=== PATIENT | male | born 1995 | race Caucasian/White ===

== ENCOUNTER 2024-11-15 11:55 | Inpatient (IN) | payer MEDICAID, SELFPAY ==
[2024-11-15] VITALS (7 sets, daily range): BP systolic 135–167; BP diastolic 67–98; PULSE 47–64; RESP 13–90; TEMP 36.1–37.1; O2SAT 97–100; BMI 21.2
--- NOTE | 2024-11-15 12:17 | XR_ITS ---
Examination: CT abdomen with intravenous contrast CT pelvis with intravenous contrast 2-D coronal reconstructions 2-D sagittal reconstructions Date and time of exam:November 15, 2024 12:51 PM Comparison December 12, 2023 INDICATIONS: Upper abdominal pain and vomiting today, history pancreatitis. CTDI: vol (mGy) 5.35 DLP: (mGycm) 307 Technique: Multiple axial sections of the abdomen and pelvis have been obtained. 64 slice high-resolution scanner used. 3 mm axial sections have been obtained, post intravenous injection 60 cc [id number] 2-D sagittal, coronal reconstructions obtained. Low dose protocols were performed. One or more of the following dose reduction techniques were used; automated exposure control, adjustment of the mA and/or KV according to patient size, use of iterative reconstruction technique. Findings: Fatty infiltration throughout the liver No gallstones Severe acute pancreatitis with marked edema and fluid surrounding the pancreas which may represent a developing pseudocyst Spleen not enlarged No hydronephrosis Aorta normal size No bowel obstruction Normal appendix Urinary bladder intact No prostatomegaly IMPRESSION: Severe acute pancreatitis
[2024-11-15] MEDS: ONDANSETRON INJ 2 MG/ML INJ 2 ML 4 MG IVP ×3 (12:35→20:49)
[2024-11-15] MEDS: SODIUM CHLORIDE 0.9% 1000 ML 1,000 ML 999 ML IV ×2 (12:37→13:02)
[2024-11-15] MEDS: HYDROmorphone INJ 2 MG/ML VIAL 1 MG IVP ×3 (12:39→20:48)
[2024-11-15] MEDS: FAMOTIDINE INJ 10 MG/ML VIAL 2 ML 20 MG IVP (12:40)
--- NOTE | 2024-11-15 12:45 | EKG_ITS ---
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
[2024-11-15 13:06] LABS: Basophils # (Auto) 0.0 Thou/mm3 (0.0-0.2); Basophils % (Auto) 0 % (0-2.5); Eosinophils # (Auto) 0.1 Thou/mm3 (0.0-0.5); Eosinophils % (Auto) 1 % (0-10); Hematocrit 46.1 % (41.0-53.0); Hemoglobin 17.7 g/dL (13.5-16.0); Immature Granulocytes Auto 0.06 Thou/mm3 (0.00-0.00); Lymphocytes # (Auto) 1.3 Thou/mm3 (1.0-4.8); Lymphocytes % (Auto) 13 % (10-50); Mean Corpuscular HGB Conc 38.4 g/dl (31.0-37.0); Mean Corpuscular Hemoglobin 33.1 pg (25.0-35.0); Mean Corpuscular Volume 86 fL (80-100); Monocytes # (Auto) 0.4 Thou/mm3 (0.0-0.8); Monocytes % (Auto) 4 % (0-12); Neutrophils # (Auto) 8.2 Thou/mm3 (1.8-7.7); Neutrophils % (Auto) 81 % (37-80); Nucleated Red Blood Cell # 0.00 Thou/mm3 (0.00-0.00); Nucleated Red Blood Cell % 0 /100 WBC (0); RDW Standard Deviation 40.7 fL (35.1-43.9); Red Blood Count 5.35 Miln/mm3 (4.50-5.90); White Blood Count 10.1 Thou/mm3 (3.8-10.6)
[2024-11-15 13:07] LABS: Platelet Count 45 Thou/mm3 (140-440)
[2024-11-15 13:26] LABS: Alanine Aminotransferase 12 U/L (10-49); Albumin, Serum 4.6 gm/dL (3.5-5.0); Albumin/Globulin Ratio 1.3 (1.2-2.2); Alcohol, Blood Medical < 3.0 mg/dL (0-10.0); Alkaline Phosphatase 118 U/L (46-116); Anion Gap 13 (7-16); Aspartate Amino Transferase 32 U/L (0-34); BUN/Creatinine Ratio 9 Ratio (12-20); Bilirubin,Total 2.0 mg/dL (0.3-1.2); Blood Urea Nitrogen 9 mg/dL (9-23); Calcium 9.8 mg/dL (8.3-10.6); Calcium (Corrected) 9.8 mg/dL (8.5-10.1); Carbon Dioxide 21.0 mMol/L (20.0-31.0); Chloride 107 mMol/L (98-107); Creatinine (Component) 1.0 mg/dL (0.6-1.3); Estimated Creatinine Clearance 96.1 mL/min (>60); Globulin 3.6 gm/dL (2.3-3.5); Glucose 141 mg/dL (74-106); Lipase 1075 U/L (12-53); Osmolality,Calculated 281 (275-295); Potassium 4.4 mMol/L (3.4-5.1); Sodium 141 mMol/L (136-145); Total Protein 8.2 gm/dL (5.7-8.2); eGFR > 60 See Note
[2024-11-15 13:50] LABS: Slide Review Platelets confirmed
--- NOTE | 2024-11-15 14:05 | EDNOTE_ITS ---
ED Abdominal Pain RME/HPI General Chief Complaint: Abdominal Pain Stated complaint: EXTREME ABD PAIN, NAUSEA SINCE THIS AM; 02/10 Time seen by provider: 11/15/24 12:17 Arrival date/time: 11/15/24 11:55 This is a case of 29-year-old male with history of pancreatitis and alcohol intake came in in the emergency room due to abdominal pain generalized which started today associated with nausea vomiting worsening of the symptoms this patient decided to start consult here in the emergency room patient have history of recurrent admission due to acute pancreatitis last admission 7 months ago Limitations: no limitations Related Data Home Medications ?Medication ?Instructions ?Recorded ?Confirmed [id number] 250 1 tab PO Q6H PRN He adache 12/13/23 12/13/23 mg-250 mg-65 mg tablet (Excedrin Migraine) Allergies Allergy/AdvReac Type Severity Reaction Status Date / Time No Known Allergies Allergy Verified 11/15/24 11:58 Review of Systems Constitutional Constitutional: Reports system reviewed and no additional complaints, except as documented, Reports as per HPI, Denies chills and Denies fever(s) ENT Ears, Nose, Mouth, and Throat: Denies dysphagia and Denies odynophagia Cardiovascular Cardiovascular: Reports system reviewed and no additional complaints, except as documented, Reports as per HPI, Denies chest pain and Denies dyspnea Respiratory Respiratory: Reports system reviewed and no additional complaints, except as documented, Reports as per HPI and Denies dyspnea Gastrointestinal Gastrointestinal: Reports system reviewed and no additional complaints, except as documented, Reports as per HPI, Reports abdominal pain, Denies belching, Denies bloating, Denies change in bowel habits, Denies change in stool character, Denies coffee ground emesis, Denies constipation, Denies cramping, Denies diarrhea, Denies dyspepsia, Denies dysphagia, Denies early satiety, Denies excessive flatus, Denies fecal incontinence, Denies heartburn, Denies hematemesis, Denies hematochezia, Denies loose stools, Denies melena, Reports nausea, Denies odynophagia, Denies tenesmus and Reports vomiting Neurologic Neurologic: Reports system reviewed and no additional complaints, except as documented and Reports as per HPI Past Medical History Past Medical History NEUROLOGIC: Negative Neurological Disorders CARDIAC: Negative Cardiac Disorders, Congestive Heart Failure or Hypertension RESPIRATORY: Negative Chronic Obstructive Pulmonary Disease (COPD) or Asthma GASTROINTESTINAL: Positive Gastrointestinal Disorders and Pancreatitis GENITOURINARY: Negative Genitourinary Disorders or Renal Disease MUSCULOSKELETAL: Negative Musculoskeletal Disorders ENDOCRINE: Negative Endocrine Disorders, Diabetes Mellitus Type 1, Diabetes Mellitus Type 2, Hyperthyroidism or Hypothyroidism HEMATOLOGIC: Negative Blood Disorders or Sickle Cell Disease OTHER HISTORY: Positive Human Immunodeficiency Virus (HIV); Negative Autoimmune Disease or Anesthesia Reactions Family History FAMILY HISTORY: Negative Family Cardiac Disorders Surgical History SURGICAL: Negative Endocrine Surgery, Ear Surgery or Nephrectomy Social History SMOKING STATUS: Current every day smoker ED Exam General Limitations: Present no limitations General appearance: Present alert, in no apparent distress and other (Awake alert oriented not in distress nontoxic looking well-hydrated well-nourished) Head Head exam: Present atraumatic, normocephalic and normal inspection Eye Eye exam: Present normal appearance, PERRL and EOMI ENT ENT exam: Present normal exam, normal oropharynx and mucous membranes moist Neck Neck exam: Present normal inspection, full ROM and trachea midline; Absent tenderness, meningismus or lymphadenopathy Chest Chest inspection: Present normal inspection and symmetric chest wall rise; Absent tenderness, rash or abscess Respiratory Respiratory exam: Present normal lung sounds bilaterally; Absent respiratory distress, wheezes, stridor, accessory muscle use or prolonged expiratory phase Cardiovascular Cardiovascular exam: Present regular rate, normal rhythm and normal heart sounds; Absent bradycardia, tachycardia, irregular rhythm, systolic murmur or diastolic murmur Abdominal Exam Abdominal exam: Present soft, tenderness (Moderate tenderness on both upper abdomen and epigastric area) and normal bowel sounds; Absent distention, guarding, rebound, rigidity, diminished bowel sounds, hyperactive bowel sounds, hypoactive bowel sounds, organomegaly, trauma, psoas sign, obturator sign, Gibbs's sign, Rovsing's sign or ascites Abdominal tenderness: Present RUQ, LUQ, epigastrium and moderate Extremities Exam Extremities exam: Present normal inspection and full ROM Back Exam Back exam: Present normal inspection and full ROM Neurological Exam Neurological exam: Present alert, oriented X3, CN II-XII intact, normal gait and reflexes normal; Absent motor sensory deficit Psychiatric Psychiatric exam: Present normal affect and normal mood Skin Skin exam: Present warm, dry, intact and normal color Course Quality Measures none Orders Category Date Time Status COVID-19 Screening Questionnaire NOW Care 11/15/24 14:[address] Screening NOW Care 11/15/24 12:18 Active Decision to Admit X1 Care 11/15/24 14:05 Active EKG (ED ONLY) *Do not use* NOW Care 11/15/24 12:45 Active Insert IV NOW Care 11/15/24 12:[address] abdomen pelvis w con Stat Exams 11/15/24 12:17 Completed EKG (ED Only) Stat Exams 11/15/24 12:45 Draft US gall bladder Stat Exams 11/15/24 14:06 Ordered Alcohol, Blood Medical Stat Lab 11/15/24 12:45 Completed CBC Stat Lab 11/15/24 12:45 Completed Comprehensive Metabolic Panel Stat Lab 11/15/24 12:45 Completed Drug Screen,Urine Stat Lab 11/15/24 12:17 Ordered Lipase Stat Lab 11/15/24 12:45 Completed UA, C/S IF [Urinalysis, C/S if Indicated] Stat Lab 11/15/24 12:17 Ordered Famotidine Inj [Pepcid Inj] Med 11/15/24 12:34 Discontinued 20 mg IVP X1 ONE HYDROmorphone INJ [Dilaudid Inj] Med 11/15/24 12:34 Discontinued 1 mg IVP X1 ONE Morphine Inj Med 11/15/24 12:18 Discontinued 4 mg IVP X1 ONE Ondansetron Inj [Zofran Inj] Med 11/15/24 12:18 Discontinued 4 mg IVP X1 ONE Ondansetron Inj [Zofran Inj] Med 11/15/24 12:34 Discontinued 4 mg IVP X1 ONE Pantoprazole Inj [Protonix Inj] Med 11/15/24 12:18 Discontinued 40 mg IVP X1 ONE Sodium Chloride 0.9% 1000 ml [Ns] 1,000 ml Med 11/15/24 12:17 Discontinued IV 999 mls/hr Sodium Chloride 0.9% 1000 ml [Ns] 1,000 ml Med 11/15/24 12:34 Discontinued IV 999 mls/hr Vital Signs Vital signs: Vital Signs Temperature 98 F 11/15/24 12:13 Pulse Rate 64 11/15/24 12:13 Respiratory Rate 18 11/15/24 12:13 Blood Pressure 138/72 H 11/15/24 12:13 Pulse Oximetry (%) 100 11/15/24 12:13 Oxygen Delivery Method Room Air 11/15/24 12:13 Patient is afebrile not tachycardic not tachypneic BP stable not hypoxic oxygen saturation is 100% in room air Abdominal Pain MDM MDM Narrative MDM Narrative:: This is a case of 29-year-old male with history of pancreatitis and alcohol intake came in in the emergency room due to abdominal pain generalized which started today associated with nausea vomiting worsening of the symptoms this patient decided to start consult here in the emergency room patient have history of recurrent admission due to acute pancreatitis last admission 7 months ago physical examination patient is awake alert oriented not in distress nontoxic looking vital signs stable BP stable not tachycardic not tachypneic not hypoxic no signs and symptoms of sepsis or dehydration patient abdominal exam noted to have moderate tenderness on both upper abdomen and epigastric area no guarding no rebound no rigidity negative psoas negative straight or negative Rovsing's and McBurney's negative Gibbs sign negative CVA tenderness the rest of the physical examination neurological exam is normal and unremarkable blood test showed no leukocytosis patient have hemoconcentration patient have elevated hemoglobin 17.7 no normal platelet no electrolyte imbalance kidney function is normal liver function AST ALT is normal alk phos is elevated 118 bilirubin is also elevated 2.0 lipase is elevated [address] scan showed severe acute pancreatitis decision to admit was given I spoke to the hospitalist Dr. Greene discussed patient condition history and physical examination relayed the blood test and CT scan agreed that the patient need to be admitted for acute pancreatitis discussed with the patient the treatment plan admission and agreed patient was given a bolus of normal saline Dilaudid due to severe abdominal pain Zofran for vomiting and Pepcid. Patient data External records reviewed:: [facility] previous records Clinical information provided by:: patient Social determinants that could affect healthcare access:: none Patient has the following chronic illnesses:: None How is presenting disease/condition affected by chronic disease/condition?: no chronic disease Evaluation data The following diagnostics were reviewed and interpreted by me:: lab results and radiology exam(s) Lab and/or radiology exams considered but not ordered:: None Interpretation Summary: None Medications / Prescriptions Medications or Prescriptions considered but not ordered:: Given Medication administrations:: Medication Administration History Discontinued Medications Famotidine (Famotidine Inj 10 Mg/Ml Vial 2 Ml) 20 mg IVP X1 ONE Stop: 11/15/24 12:35 Last Admin: 11/15/24 12:40 Dose: 20 mg Documented By: ZULEYKA Hydromorphone HCl (Hydromorphone Inj 2 Mg/Ml Vial) 1 mg IVP X1 ONE Stop: 11/15/24 12:35 Last Admin: 11/15/24 12:39 Dose: 1 mg Documented By: ZULEYKA Sodium Chloride (Ns) 1,000 mls @ 999 mls/hr IV .Q1H1M ONE Stop: 11/15/24 13:17 Last Infusion: 11/15/24 13:57 Dose: Infused Documented By: Admin: 11/15/24 12:37 Dose: 999 mls/hr Documented By: ZULEYKA Sodium Chloride (Ns) 1,000 mls @ 999 mls/hr IV .Q1H1M ONE Stop: 11/15/24 13:34 Last Admin: 11/15/24 13:02 Dose: 999 mls/hr Documented By: ZULEYKA Morphine Sulfate (Morphine Sulf Inj 10 Mg/Ml Vial) 4 mg IVP X1 ONE Stop: 11/15/24 12:19 Ondansetron HCl (Ondansetron Inj 2 Mg/Ml Inj 2 Ml) 4 mg IVP X1 ONE; Protocol Stop: 11/15/24 12:19 Last Admin: 11/15/24 12:35 Dose: 4 mg Documented By: ZULEYKA Ondansetron HCl (Ondansetron Inj 2 Mg/Ml Inj 2 Ml) 4 mg IVP X1 ONE; Protocol Stop: 11/15/24 12:35 Pantoprazole Sodium (Pantoprazole Inj 40 Mg Vial) 40 mg IVP X1 ONE Stop: 11/15/24 12:19 Last Admin: 11/15/24 12:37 Dose: 40 mg Documented By: ZULEYKA Given Consultations Consultation(s) initiated? (list below): Yes Consultation #1 (Physician, Specialty, Details): DR fraser discussed patient condition history and physical examination relayed result of the blood test and CT scan accept patient admission for acute pancreatitis Diagnosis Differential diagnosis abdominal pain: abdominal pain, acute appendicitis, calculus of kidney, constipation, diverticulitis, gastroenteritis and pancreatitis Most likely diagnosis given after review of the tests above:: Acute pancreatitis Admission Indicated Admission indicated?: indicated Explain why admission is indicated or not indicated:: Acute pancreatitis Admission Request Was there a request for admission?: Yes Admission Attestation Admission request attestation: Discussed case with [] from Hospitalist service regarding admission. Discussed patients ED course, exam findings, labs, and radiology results. The Hospitalist [agrees,declines] to accept the patient for admission. Disposition Plan Disposition Plan: Admit Discharge Plan Plan Patient Disposition: Admit Acute Care w/in Hospital Prescriptions/Referrals Prescriptions/Med Rec: No Action Excedrin Migraine 250-250-65 mg Tablet 1 tab PO Q6H PRN (Reason: Headache) Referrals: No Primary/Family,Physician [Primary Care Provider] - In 1 week Problem List Clinical Impression: Acute pancreatitis Patient/Caregiver Discharge Instructions Education Materials: ED Pancreatitis Print Language: Slovenian Stand Alone Forms: Lynette Award Info., Patient Portal Info Letter PA/THROW OUT CLERK Supervising Physician PA/THROW OUT CLERK Supervising Physician: DR jensen
--- NOTE | 2024-11-15 14:06 | XR_ITS ---
Examination: Abdomen sonogram, Limited Date and time of exam: November 15, 2024 1424 hours INDICATIONS: Mid abdominal pain today, severe acute pancreatitis on CT abdomen study today Technique: Real-time brown scale transabdominal sonographic images of the upper abdomen obtained. Findings: Negative for gallstones Gallbladder wall 0.2 cm Common bile duct 0.2 cm Pancreatic head 2.4 cm, fluid surrounding the pancreas Liver 14.2 cm no focal liver lesions Normal hepatopedal portal venous flow Patent IVC IMPRESSION: Normal gallbladder Normal common bile duct Acute pancreatitis
[2024-11-15] MEDS: MORPHINE SULF INJ 10 MG/ML VIAL 4 MG IVP (14:08)
[2024-11-15 16:15] LABS: Magnesium 1.4 mg/dL (1.6-2.6); Phosphorous 2.3 mg/dL (2.4-5.1)
[2024-11-15] MEDS: THIAMINE INJ 100 MG/ML VIAL 2 ML IVP (16:19)
[2024-11-15] MEDS: FOLIC ACID INJ 1 MG/0.2 ML IVP (16:22)
[2024-11-15] MEDS: LORazepam 2 MG/ML VIAL 1 MG IVP ×2 (16:24→20:49)
--- NOTE | 2024-11-15 16:29 | ESHP_ITS ---
<Statement entered by Cooper Martin MD - 11/15/24 17:42> Patient was seen and examined at the bedside. Patient has been drinking alcohol 5-6 beers every day. Last drink was yesterday. He came with abdominal discomfort and nausea and vomiting. He was found to have acute pancreatitis per CT with elevated lipase. Fluid bolus was given. Will continue with IV fluids pain management and nausea control. Keep him n.p.o. for now. [facility] protocol as needed. All labs and orders were reviewed. Documentation for date of: 11/15/24 HPI History of Present Illness Chief complaint: Abdominal pain, nausea, and vomiting. History of present illness: 29-year-old male with PMH of recurrent pancreatitis, HIV (not on ART), thrombocytopenia, syphilis (partially treated), and polysubstance use (alcohol, marijuana, vape), presenting to the ED with acute epigastric pain radiating to the back and right side, ongoing since this morning. Pain is similar to previous episodes of pancreatitis. He also reports persistent nausea and multiple episodes of vomiting. He has not passed gas or had a bowel movement since onset. He last ate and drank alcohol last night, consuming 5?6 beers and liquor, which he does on weekends. He used marijuana last week and smokes vape daily. Denies other drug use. He has had three prior episodes of pancreatitis (October 2022, February 2023, and December 2023). Last admission was in December 2023, with similar presentation and a lipase of 1641. He was treated supportively and discharged after resolution. He has a history of HIV diagnosed in 2021, not currently on ART. He was given 1 dose of Penicillin G in December 2023 for syphilis, but has not followed up with PCP or infectious disease since. No additional treatment received. ?ED course: In the emergency department, the patient presented with acute epigastric pain radiating to the back and right side, associated with persistent nausea and vomiting. He reported no oral intake since the night before and had not passed gas or had a bowel movement. Vitals were stable and exam showed epigastric and RUQ tenderness without peritoneal signs. Laboratory evaluation revealed an elevated lipase of 1075, hemoconcentration (Hgb 17.7), thrombocytopenia (platelets 45k), elevated bilirubin (2.0), and mild elevation in alkaline phosphatase (118). CT abdomen/pelvis demonstrated severe acute pancreatitis with surrounding edema and fluid, possibly indicating early pseudocyst formation. EKG showed sinus bradycardia at a rate of 43 with a short IL interval. RUQ ultrasound was ordered to evaluate for biliary obstruction. The patient was treated with IV fluids, Dilaudid for pain, Zofran for nausea, and Pepcid, and was admitted for further management of acute pancreatitis. Review of Systems: * Constitutional: Denies fever, chills. * GI: Reports abdominal pain, nausea, vomiting. Denies diarrhea, melena, hematochezia. No BM or flatus today. * , CV, Resp, MSK, Neuro, Skin: All other systems reviewed and negative unless otherwise noted in ED. Social History: * Alcohol: Drinks heavily on weekends (5?6 beers + liquor); last use last night. * Marijuana: Last use 1 week ago. * Tobacco: Vapes daily. * No IV drug use. * No known occupational exposures. * No follow-up with providers since last admission. Family History: * Denies family history of pancreatitis, liver disease, HIV, GI malignancy, or coagulopathy. Allergies: * No known drug allergies (NKDA) Exam Vital Signs Temp Pulse Resp BP Pulse Ox O2 Del Method 98.7 F 50 L 13 141/98 H 100 Room Air 11/15/24 15:00 11/15/24 15:00 11/15/24 15:00 11/15/24 15:00 11/15/24 15:00 11/15/24 15:00 Narrative Exam Physical Exam: General: Alert, oriented, nontoxic HEENT: PERRLA, moist mucous membranes CV: RRR, bradycardic, no murmurs Resp: Clear bilaterally GI: Epigastric and RUQ tenderness, no rebound or guarding Neuro: AOx3, non-focal Skin: No rashes, no signs of bleeding Results: Labs 11/18/24 04:32 11/18/24 04:32 Labs: Short CBC 11/15/24 Range/Units 12:45 WBC 10.1 (3.8-10.6) Thou/mm3 Hgb 17.7 H* (13.5-16.0) g/dL Hct 46.1 (41.0-53.0) % Plt Count 45 L (140-440) Thou/mm3 BMP 11/15/24 12:45 Sodium 141 Potassium 4.4 Chloride 107 Carbon Dioxide 21.0 BUN 9 Creatinine 1.0 Glucose 141 H Calcium 9.8 Liver Function 11/15/24 Range/Units 12:45 Total Bilirubin 2.0 H (0.3-1.2) mg/dL AST 32 (0-34) U/L ALT 12 (10-49) U/L Alkaline Phosphatase 118 H (46-116) U/L Albumin 4.6 (3.5-5.0) gm/dL Quality Measures Quality Measures none Medications Home Medications and Allergies Home Medications ?Medication ?Instructions ?Recorded ?Confirmed ?Type No Known Home Medications 11/15/2411/01 History Allergies Allergy/AdvReac Type Severity Reaction Status Date / Time No Known Allergies Allergy Verified 11/15/24 11:58 Visit Medications Acetaminophen (Acetaminophen 325 Mg Tablet) 650 mg PO Q6H PRN PRN Reason: Fever >100.4 Stop: 12/15/24 15:44 Acetaminophen (Acetaminophen 325 Mg Tablet) 650 mg PO Q6H PRN PRN Reason: PAIN SCALE 1-3 (mild Stop: 12/15/24 15:44 Hydrocodone Bitart/Acetaminophen (Hydrocodone/Apap 5/325 Tablet) 1 tab PO Q4HR PRN PRN Reason: PAIN SCALE 4-6 (Moderate Stop: 11/20/24 15:44 Folic Acid (Folic Acid 1 Mg Tablet) 1 mg PO QDAY [facility] Stop: 12/18/24 08:59 Folic Acid (Folic Acid Inj 1 Mg/0.2 Ml) 1 mg IVP QDAY [facility] Stop: 11/17/24 09:01 Hydromorphone HCl (Hydromorphone Inj 2 Mg/Ml Vial) 1 mg IVP Q4HR PRN PRN Reason: Pain 7-10 Stop: 11/20/24 15:25 Lactated Ringer's (Lactated Ringers) 1,000 mls @ 200 mls/hr IV .Q5H CLAUDIA Stop: 12/15/24 15:24 Magnesium Sulfate (Magnesium Sulfate Ivpb) 2 gm in 50 mls @ 25 mls/hr IV X1 ONE Stop: 11/15/24 17:24 Lorazepam (Lorazepam 2 Mg/Ml Vial) 0.5 mg IVP Q4H PRN PRN Reason: CIWA SCORE(2-6) Stop: 11/20/24 15:24 Lorazepam (Lorazepam 2 Mg/Ml Vial) 1 mg IVP Q4H PRN PRN Reason: CIWA SCORE (7-11) Stop: 11/20/24 15:24 Lorazepam (Lorazepam 2 Mg/Ml Vial) 2 mg IVP Q4H PRN PRN Reason: CIWA SCORE (12-16) Stop: 11/20/24 15:24 Lorazepam (Lorazepam 2 Mg/Ml Vial) 2 mg IV Q2HR PRN PRN Reason: CIWA SCORE 20-25 Stop: 11/20/24 15:44 Ondansetron HCl (Ondansetron Inj 2 Mg/Ml Inj 2 Ml) 4 mg IVP Q6H PRN; Protocol PRN Reason: NAUSEA OR VOMITING Stop: 12/15/24 15:44 Pantoprazole Sodium (Pantoprazole Inj 40 Mg Vial) 40 mg IVP QDAY CLAUDIA Stop: 12/15/24 15:29 Sennosides (Senna Tablet) 1 tab PO QDAY PRN; Protocol PRN Reason: constipation Stop: 12/15/24 15:44 Thiamine HCl (Thiamine Inj 100 Mg/Ml Vial 2 Ml) 100 mg IVP QDAY [facility] Stop: 11/17/24 09:01 Thiamine HCl (Thiamine 100 Mg Tablet) 100 mg PO QDAY CLAUDIA Stop: 12/18/24 08:59 Discontinued Medications Famotidine (Famotidine Inj 10 Mg/Ml Vial 2 Ml) 20 mg IVP X1 ONE Stop: 11/15/24 12:35 Last Admin: 11/15/24 12:40 Dose: 20 mg Hydromorphone HCl (Hydromorphone Inj 2 Mg/Ml Vial) 1 mg IVP X1 ONE Stop: 11/15/24 12:35 Last Admin: 11/15/24 12:39 Dose: 1 mg Sodium Chloride (Ns) 1,000 mls @ 999 mls/hr IV .Q1H1M ONE Stop: 11/15/24 13:17 Last Infusion: 11/15/24 13:57 Dose: Infused Sodium Chloride (Ns) 1,000 mls @ 999 mls/hr IV .Q1H1M ONE Stop: 11/15/24 13:34 Last Infusion: 11/15/24 14:05 Dose: Infused Morphine Sulfate (Morphine Sulf Inj 10 Mg/Ml Vial) 4 mg IVP X1 ONE Stop: 11/15/24 12:19 Last Admin: 11/15/24 14:08 Dose: 4 mg Ondansetron HCl (Ondansetron Inj 2 Mg/Ml Inj 2 Ml) 4 mg IVP X1 ONE; Protocol Stop: 11/15/24 12:19 Last Admin: 11/15/24 12:35 Dose: 4 mg Ondansetron HCl (Ondansetron Inj 2 Mg/Ml Inj 2 Ml) 4 mg IVP X1 ONE; Protocol Stop: 11/15/24 12:35 Last Admin: 11/15/24 14:08 Dose: 4 mg Pantoprazole Sodium (Pantoprazole Inj 40 Mg Vial) 40 mg IVP X1 ONE Stop: 11/15/24 12:19 Last Admin: 11/15/24 12:37 Dose: 40 mg Assessment & Plan Plan 29-year-old male with recurrent acute pancreatitis, HIV (not on ART), thrombocytopenia, and substance use disorder, presenting with classic symptoms of pancreatitis, confirmed on imaging and labs. #Acute Pancreatitis 4th episode (prior: October, Feb 2023, Dec 2023) Lipase 1075, CT shows severe pancreatitis with peripancreatic fluid (possible pseudocyst) BISAP Score: 1 Plan: * NPO * IV fluids (NS 200cc/hr) * IV Dilaudid for pain * IV Zofran PRN * Monitor I/Os * Recheck CBC, CMP, lipase daily * GI consult if pseudocyst enlarges or necrosis suspected * Advance diet once pain/nausea improve #History of Recurrent Pancreatitis 3 prior admissions with similar etiology and presentation Plan: * Manager System on alcohol cessation * Document frequency and triggers * Discuss prevention strategies #HIV (Diagnosed 2021, not on ART) CD4 was 116 in July 2023; current status unknown Plan: * Order CD4 count, HIV viral load * ID consult for ART initiation * Reinforce adherence and importance of treatment * Social work for follow-up assistance #History of Syphilis (incomplete treatment) 1 dose Penicillin G in Dec 2023 No further follow-up Plan: * Order RPR * ID to assist in completing treatment if needed * Manager System on STI follow-up #Thrombocytopenia Platelets 45k today (was 11k in Dec) No bleeding Plan: * Trend daily CBC * Avoid IM injections/NSAIDs * No transfusion unless <10k or active bleeding #Alcohol Use Disorder Drinks heavily on weekends; last use last night CIWA started Plan: * Start CIWA protocol * Thiamine, folate, multivitamin * PRN lorazepam if symptomatic * Consider addiction medicine consult * Social work referral for outpatient rehab #Marijuana Use Disorder, Vape Use Plan: * Manager System to quit * Screen for behavioral health referral #Sinus Bradycardia with Short IL Interval * Asymptomatic Plan: * Monitor vitals * Repeat EKG if symptoms occur * No active intervention unless symptomatic #Hyperbilirubinemia (chronic) * Total bili 2.0 (same as December) Plan: * Await RUQ U/S to rule out obstruction * Monitor LFTs and bili trend #Hypertriglyceridemia (history of) Plan: * Order triglycerides * Consider fibrates if >500 * Manager System on low-fat, alcohol-free diet Health Maintenance / Orders * Disposition: Admit to medicine * Feeding: NPO, advance as tolerated * VTE prophylaxis: SCD * GI prophylaxis: * Code status: Full code ----- Plan discussed with attending physician Dr. Ahumada and senior resident Dr. Veronica Jeffries MD PGY-1 Internal Medicine Attending Provider Attestation/Addendum I attest that I was physically present for the evaluation, physical examination, lab and imaging review of the patient with the residents. I discussed the case with the residents and agree with the findings and plans of care as documented above. After examination of the patient and review of the clinical data I feel that this patient needs admission to the hospital for further treatment/evaluation. Jaqui Ahumada MD
[2024-11-15] MEDS: Magnesium Sulfate 2 GM Ivpb 2 GM/50 ML BAG IV (16:32)
[2024-11-15] MEDS: RINGERS LACTATED 1000 ML 1,000 ML 200 ML IV ×2 (16:33→20:49)
[2024-11-15 17:32] LABS: Syphilis Reactive (Nonreactive)
[2024-11-15 17:33] LABS: MHATP/TP-PA* See Sep Rpt
[2024-11-15 21:10] LABS: Collection Type, Urine Clean Catch; Squamous Epithelial Cell,Urine 0 /hpf (0-5)
[2024-11-15 21:17] LABS: Bilirubin,Urine Negative (Negative); Blood,Urine Negative (Negative); Clarity,Urine Clear (Clear/Hazy); Color,Urine Lt-Yellow (Lt Yel-Yel); Culture Indicated,Urine Not Indicated; Glucose, Urine Negative (Negative); Ketones,Urine 1+ (Negative); Leukocyte Esterase,Urine Negative (Negative); Nitrite,Urine Negative (Negative); PH,Urine 5.0 (5.0-7.0); Protein,Urine Negative (Neg - Trace); RBC,Urine 1 /hpf (0-3); Specific Gravity,Urine 1.048 (1.001-1.035); Urobilinogen,Urine Negative mg/dL (0.0-1.0); WBC,Urine 1 /hpf (0-5)
[2024-11-15 21:24] LABS: Amphetamine/Methamp Scrn,U Negative (Negative); Barbiturate Screen,Urine Negative (Negative); Benzodiazepines Screen,Urine Negative (Negative); Benzoylecgonine Screen, Ur Negative (Negative); Fentanyl Screen,Urine Negative (Negative); Opiate Screen,Urine Positive (Negative); THC Screen,Urine Positive (Negative)
[2024-11-16] VITALS (7 sets, daily range): BP systolic 117–144; BP diastolic 71–103; PULSE 69–102; RESP 16–95; TEMP 36.2–36.5; O2SAT 95–98
[2024-11-16] MEDS: LORazepam 2 MG/ML VIAL 1 MG IVP (02:39)
[2024-11-16] MEDS: HYDROmorphone INJ 2 MG/ML VIAL 1 MG IVP ×4 (02:39→19:21)
[2024-11-16] MEDS: RINGERS LACTATED 1000 ML 1,000 ML 200 ML IV (02:39)
[2024-11-16 06:06] LABS: Basophils # (Auto) 0.0 Thou/mm3 (0.0-0.2); Basophils % (Auto) 0 % (0-2.5); Eosinophils # (Auto) 0.0 Thou/mm3 (0.0-0.5); Eosinophils % (Auto) 0 % (0-10); Hematocrit 41.1 % (41.0-53.0); Hemoglobin 15.2 g/dL (13.5-16.0); Immature Granulocytes Auto 0.03 Thou/mm3 (0.00-0.00); Lymphocytes # (Auto) 0.5 Thou/mm3 (1.0-4.8); Lymphocytes % (Auto) 7 % (10-50); Mean Corpuscular HGB Conc 37.0 g/dl (31.0-37.0); Mean Corpuscular Hemoglobin 33.1 pg (25.0-35.0); Mean Corpuscular Volume 90 fL (80-100); Monocytes # (Auto) 0.4 Thou/mm3 (0.0-0.8); Monocytes % (Auto) 5 % (0-12); Neutrophils # (Auto) 6.9 Thou/mm3 (1.8-7.7); Neutrophils % (Auto) 88 % (37-80); Nucleated Red Blood Cell # 0.00 Thou/mm3 (0.00-0.00); Nucleated Red Blood Cell % 0 /100 WBC (0); RDW Standard Deviation 43.2 fL (35.1-43.9); Red Blood Count 4.59 Miln/mm3 (4.50-5.90); White Blood Count 7.8 Thou/mm3 (3.8-10.6)
[2024-11-16 06:14] LABS: Platelet Count 19 Thou/mm3 (140-440)
[2024-11-16 06:20] LABS: INR 1.1 (0.9-1.3); Partial Thromboplastin Time 25.6 Seconds (22.0-36.0); Prothrombin Time 12.4 Seconds (9.0-12.2)
[2024-11-16 06:57] LABS: Alanine Aminotransferase < 7 U/L (10-49); Albumin, Serum 3.2 gm/dL (3.5-5.0); Albumin/Globulin Ratio 1.2 (1.2-2.2); Alkaline Phosphatase 91 U/L (46-116); Anion Gap 7 (7-16); Aspartate Amino Transferase 21 U/L (0-34); BUN/Creatinine Ratio 6 Ratio (12-20); Bilirubin,Total 1.6 mg/dL (0.3-1.2); Blood Urea Nitrogen < 5 mg/dL (9-23); Calcium 8.2 mg/dL (8.3-10.6); Calcium (Corrected) 8.8 mg/dL (8.5-10.1); Carbon Dioxide 23.8 mMol/L (20.0-31.0); Cardiac Risk Estimate 3.7 RATIO (4.0-6.7); Chloride 107 mMol/L (98-107); Cholesterol 118 mg/dL (132-200); Creatinine (Component) 0.9 mg/dL (0.6-1.3); Estimated Creatinine Clearance 106.8 mL/min (>60); Globulin 2.7 gm/dL (2.3-3.5); Glucose 113 mg/dL (74-106); HDL Cholesterol 32 mg/dL (40-60); LDL Cholesterol,Calculated 62 mg/dL (0-130); Lipase 1154 U/L (12-53); Magnesium 1.4 mg/dL (1.6-2.6); Osmolality,Calculated 273 (275-295); Phosphorous 2.9 mg/dL (2.4-5.1); Potassium 4.4 mMol/L (3.4-5.1); Sodium 138 mMol/L (136-145); Thyroid Stimulating Hormone 0.47 uIU/mL (0.55-4.78); Total Protein 5.9 gm/dL (5.7-8.2); Triglycerides 120 mg/dL (30-150); eGFR > 60 See Note
[2024-11-16 07:36] LABS: Glucose Estimated Average 88 mg/dL (80-131); Hemoglobin A1C 4.7 % Hgb (4.8-6.0)
[2024-11-16] MEDS: LORazepam 2 MG/ML VIAL 0.5 MG IVP ×2 (07:46→20:22)
[2024-11-16 08:31] LABS: Slide Review Platelets confirmed
--- NOTE | 2024-11-16 08:43 | ESPR_ITS ---
<Statement entered by Cooper Martin MD - 11/16/24 16:53> Patient was seen and examined at the bedside. No acute overnight events reported. Patient appears to feel better from yesterday. Started clear liquid diet. Patient was still feeling nauseous therefore we will keep on clear liquid diet and advance tomorrow. IV fluid rate Dropped to 150 cc/h. Patient reported that he received treatment for syphilis. He never received treatment for HIV and will need follow-up outpatient with ID. We will monitor for pain and fever spike. Patient is currently on CIWA protocol since his last dose of alcohol was a day before admission. Will continue to monitor for pain and clinical improvement. I discussed and supervised with the technology internship physician who took care of this patient. I personally saw and examined the patient. I agree with most of the assessment and plan. Disclaimer: Despite multiple revisions, due to the dictation software being used, the document bellow may not be free of grammatical errors including phonetic/typographic errors. However, this does not deter from our commitment to providing health care in the patient's best interest in mind. Plan of care discussed with attending Physician Dr. Brandyn Martin MD PGY-3 Documentation for date of: 11/16/24 Subjective Subjective Interval history: No overnight events. Evaluated at bedside. Advanced pt to clear liquid diet. LR rate changed from 200 to 150 mL/hr. The patient denies chest pain, shortness of breath, tremor or diaphoresis. Exam Vital Signs Temp Pulse Resp BP Pulse Ox O2 Del Method O2 Flow Rate 97.1 F 69 18 141/90 H 97 Room Air 2 11/16/24 04:00 11/16/24 04:00 11/16/24 04:00 11/16/24 04:00 11/16/24 04:00 11/16/24 04:00 11/15/24 18:35 Narrative Exam General: Well appearing, well nourished, in no distress. Oriented x 3, normal mood and affect . Ambulating without difficulty. Skin: Good turgor, no rash, unusual bruising or prominent lesions Head: Normocephalic, atraumatic, no visible or palpable masses, depressions, or scaring. Neck: Supple, without lesions, bruits, or adenopathy, thyroid non-enlarged and non-tender Heart: No cardiomegaly or thrills; regular rate and rhythm, no murmur or gallop Lungs: Clear to auscultation and percussion Abdomen: Bowel sounds normal, slight tenderness to epigastric region, otherwise no organomegaly, masses, or hernia Back: Spine normal without deformity or tenderness, no CVA tenderness Extremities: No amputations or deformities, cyanosis, edema or varicosities, peripheral pulses intact Musculoskeletal: Normal gait and station. No misalignment, asymmetry, crepitation, defects, tenderness, masses, effusions, decreased range of motion, instability, atrophy or abnormal strength or tone in the head, neck, spine, ribs, pelvis or extremities. Neurologic: CN 2-12 normal. Sensation to pain, touch, and proprioception normal. DTRs normal in upper and lower extremities. No pathologic reflexes. Psychiatric: Oriented X3, intact recent and remote memory, judgment and insight, normal mood and affect. Objective Labs 11/18/24 04:32 11/18/24 04:32 Labs: Laboratory Results - last 24 hr 11/15/24 11/15/24 11/16/24 12:45 20:55 05:05 WBC 10.1 7.8 RBC 5.35 4.59 Hgb 17.7 H* 15.2 D Hct 46.1 41.1 MCV 86 90 MCH 33.1 33.1 MCHC 38.4 H 37.0 RDW Std Deviation 40.7 43.2 Plt Count 45 L 19 L* D Neut % (Auto) 81 H 88 H Lymph % (Auto) 13 7 L Gaston % (Auto) 4 5 Eos % (Auto) 1 0 Baso % (Auto) 0 0 Neut # (Auto) 8.2 H 6.9 Lymph # (Auto) 1.3 0.5 L [place]aston # (Auto) 0.4 0.4 Eos # (Auto) 0.1 0.0 Baso # (Auto) 0.0 0.0 Immature Gran # (Auto) 0.06 H 0.03 H Absolute Nucleated RBC 0.00 0.00 Immature Gran % 1 H 0 Nucleated RBC % 0 0 PT 12.4 H INR 1.1 APTT 25.6 Sodium 141 138 Potassium 4.4 4.4 Chloride 107 107 Carbon Dioxide 21.0 23.8 Anion Gap 13 7 BUN 9 < 5 L Creatinine 1.0 0.9 Estim Creat Clear Calc 96.1 106.8 eGFR > 60 > 60 BUN/Creatinine Ratio 9 L 6 L Glucose [address] Glu mg/dL 88 Hemoglobin A1c 4.7 L Calculated Osmolality 281 273 L Calcium 9.8 8.2 L D Corrected Calcium 9.8 8.8 Phosphorus 2.3 L 2.9 Magnesium 1.4 L 1.4 L Total Bilirubin 2.0 H 1.6 H AST 32 21 ALT 12 < 7 L Alkaline Phosphatase 118 H 91 D Total Protein 8.2 5.9 Albumin 4.6 3.2 L D Globulin 3.6 H 2.7 Albumin/Globulin Ratio 1.3 1.2 Triglycerides 120 Cholesterol 118 L LDL Cholesterol, Calc 62 HDL Cholesterol 32 L Cholesterol/HDL Ratio 3.7 L Lipase 1075 H* 1154 H* D TSH 0.47 L Ur Collection Type Clean Catch Urine Color Lt-Yellow Urine Clarity Clear Urine pH 5.0 Ur Specific [place] 1.048 H Urine Protein Negative Urine Glucose (UA) Negative Urine Ketones 1+ A Urine Blood Negative Urine Nitrite Negative Urine Bilirubin Negative Urine Urobilinogen (Auto) Negative Ur Leukocyte Esterase Negative Urine RBC 1 Urine WBC 1 Ur Squamous Epith Cells 0 Urine Bacteria None Ur Culture Indicated? Not Indicated Urine Opiates Screen Positive A Urine Fentanyl Screen Negative Ur Barbiturates Screen Negative U Amphetamin/Meth Scrn Negative U Benzodiazepines Scrn Negative U Cocaine Metab Screen Negative U Marijuana (THC) Screen Positive A Ethyl Alcohol < 3.0 Syphilis Serology Reactive A Misc Test Result Platelets confirmed Platelets confirmed Quality Measures Quality Measures VTE prophylaxis (Ambulatory, Neftali score 0 ) Assessment & Plan Assessment Current Active Medications: Generic Name Dose Route Start Last Admin Trade Name Flako PRN Reason Stop Dose Admin Acetaminophen 650 mg 11/15/24 15:45 Acetaminophen 325 Mg Tablet PO 12/15/24 15:44 Q6H PRN Fever >100.4 Acetaminophen 650 mg 11/15/24 15:45 Acetaminophen 325 Mg Tablet PO 12/15/24 15:44 Q6H PRN PAIN SCALE 1-3 (mild Hydrocodone Bitart/Acetaminophen 1 tab 11/15/24 15:45 Hydrocodone/Apap 5/325 Tablet PO 11/20/24 15:44 Q4HR PRN PAIN SCALE 4-6 (Moderate Folic Acid 1 mg 11/18/24 09:00 Folic Acid 1 Mg Tablet PO 12/18/24 08:59 QDAY CLAUDIA Folic Acid 1 mg 11/15/24 15:30 11/15/24 16:22 Folic Acid Inj 1 Mg/0.2 Ml IVP 11/17/24 09:01 1 mg QDAY CLAUDIA Administration Hydromorphone HCl 1 mg 11/15/24 15:26 11/16/24 07:46 Hydromorphone Inj 2 Mg/Ml Vial IVP 11/20/24 15:25 1 mg Q4HR PRN Administration Pain 7-10 Lactated Ringer's 1,000 mls @ 200 mls/hr 11/15/24 15:25 11/16/24 02:39 Lactated Ringers IV 12/15/24 15:24 200 mls/hr .Q5H CLAUDIA Administration Magnesium Sulfate 4 gm in 50 mls @ 12.5 mls/hr 11/16/24 08:27 Magnesium Sulfate Ivpb IV 11/16/24 12:26 X1 ONE Lorazepam 0.5 mg 11/15/24 15:25 11/16/24 07:46 Lorazepam 2 Mg/Ml Vial IVP 11/20/24 15:24 0.5 mg Q4H PRN Administration CIWA SCORE(2-6) Lorazepam 1 mg 11/15/24 15:25 11/16/24 02:39 Lorazepam 2 Mg/Ml Vial IVP 11/20/24 15:24 1 mg Q4H PRN Administration CIWA SCORE (7-11) Lorazepam 2 mg 11/15/24 15:25 Lorazepam 2 Mg/Ml Vial IVP 11/20/24 15:24 Q4H PRN CIWA SCORE (12-16) Lorazepam 2 mg 11/15/24 15:45 Lorazepam 2 Mg/Ml Vial IV 11/20/24 15:44 Q2HR PRN CIWA SCORE 20-25 Ondansetron HCl 4 mg 11/15/24 15:45 11/15/24 20:49 Ondansetron Inj 2 Mg/Ml Inj 2 Ml IVP 12/15/24 15:44 4 mg Q6H PRN Administration NAUSEA OR VOMITING Protocol Pantoprazole Sodium 40 mg 11/15/24 15:30 11/15/24 16:35 Pantoprazole Inj 40 Mg Vial IVP 12/15/24 15:29 Not Given QDAY [facility] Sennosides 1 tab 11/15/24 15:45 Senna Tablet PO 08/14/25 15:44 QDAY PRN constipation Protocol Thiamine HCl 100 mg 11/15/24 15:30 11/15/24 16:19 Thiamine Inj 100 Mg/Ml Vial 2 Ml IVP 11/17/24 09:01 100 mg QDAY CLAUDIA Administration Thiamine HCl 100 mg 11/18/24 09:00 Thiamine 100 Mg Tablet PO 12/18/24 08:59 QDAY CLAUDIA Plan 29M with history of HIV, recurrent acute pancreatitis [OCT, FEB 2023, JULY, DEC 2023], and alcohol use disorder who presented on November 15, 2024 with generalized abdominal pain and vomiting. In ED, lipase 1075, CT abdomen: Severe acute pancreatitis with marked edema surrounding the pancreas. He was admitted for management of acute pancreatitis. # Acute Pancreatitis -Likely Alcohol related Pt has hx of reccurent pancreatitis, likely alcohol induced. CT shows severe acute pancreatitis with marked edema and fluid surrounding the pancreas, which may represent a developing pseudocyst. Gallbladder US neg for gallstones. Plan: * Decrease rate of LR@ 150 mL/hr * Clear liquid diet if pt is able to tolerate * Continue pain management with dilaudid * Monitor for pancreatic pseudocyst if sx worsen or no improvement with pain medication. # Chr Thrombocytopenia Plt 19k today, was 45k yesterday. Likely due to hemodilation from LR transfusion, liver disease, or associated with HIV. No bleeding Plan: * Continue trending platelet count, will transfuse platelet if below 10k or active bleeding * Put on bleeding precaution # Alcohol Use Disorder Patient has been drinking alcohol 5-6 beers every day. Last drink 11/14/24 Plan: * Start CIWA protocol * Thiamine, folate, multivitamin * PRN lorazepam if symptomatic * Consider addiction medicine consult * Social work referral for outpatient rehab # Subclinical Hyperthyroidism TSH 0.47, Free T4 1.08 Plan: * Start propranolol if symptomatic for hyperthyroidism, otherwise no intervention needed. 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 Current HR 74 Plan: * Monitor vitals * Repeat EKG if symptoms occur * No active intervention unless symptomatic #HIV (Diagnosed 2021, not on ART) CD4 was 116 in July 2023; current status unknown Plan: * Order CD4 count, HIV viral load * ID consult for ART initiation * Reinforce adherence and importance of treatment * Social work for follow-up assistance # Hx of Syphillis Incomplete treatment, 1 dose Penicillin G in Dec 2023. No further follow up Plan: * Pending RPR * ID to assist in completing treatment if needed * Jumpbasting Machine Operator on STI follow up #Hyperbilirubinemia (chronic) Total bili 1.6 (was 1.4 in December) US Gallbladder negative for gallstgone, normal common bile duct. Plan: * Monitor LFTs and bili trend #Hx of Hypertriglyceridemia Plan: * triglycerides resulted: 120 * Jumpbasting Machine Operator on low-fat, alcohol-free diet Dispo: admited for work up of acute Pancreatitis. DVT prophylaxis: Pt ambulatory GI prophylaxis: Protonix 40 Diet: clear liquid diet today, advance to full liquid diet for dinner if tolerable Lines: Peripheral IV Code status: Full code Case discussed with my senior resident Dr. Martin Case discussed with my attending Dr. Brandyn VargashDO PGY 1 Attending Provider Attestation/Addendum I attest that I was physically present for the evaluation, physical examination, lab and imaging review of the patient with the residents. I discussed the case with the residents and agree with the findings and plans of care as documented above. Jaqui Ahumada MD
--- NOTE | 2024-11-16 10:23 | PC.SS ---
Patient Rodo Burleson is a 29 Year old male admitted for Acute Pancreatitis. SS met with patient at bedside to discuss discharge plan and verify demographic information. Patient reports he lives at home with his life partner, Owen Ballard wh is his surrogate decision maker, [phone]. Patient is able to complete all ADL's independently. Patient does not utilize any source of DME to assist with ambulation. Pharmacy of choice is [facility]. At time of discharge patient will return back home, life partner will provide transportation. Next of kin: life partner, Owen Ballard Discharge plan: Home
[2024-11-16] MEDS: Magnesium Sulfate 4 GM Ivpb 4 GM/50 ML BAG IV (10:31)
[2024-11-16] MEDS: THIAMINE INJ 100 MG/ML VIAL 2 ML IVP (10:31)
[2024-11-16] MEDS: FOLIC ACID INJ 1 MG/0.2 ML IVP (10:49)
[2024-11-16] MEDS: HYDROcodone/APAP 5/325 TABLET 1 TAB PO (10:49)
[2024-11-16 12:43] LABS: Free T4 (Free Thyroxine) 1.08 ng/dL (0.89-1.76)
[2024-11-16] MEDS: RINGERS LACTATED 1000 ML 1,000 ML 150 ML IV ×2 (13:01→19:37)
[2024-11-16 14:54] LABS: HIV 1/2 Confirmation* See Sep Rpt
[2024-11-16] MEDS: ONDANSETRON INJ 2 MG/ML INJ 2 ML 4 MG IVP (19:24)
[2024-11-17] VITALS (16 sets, daily range): BP systolic 103–140; BP diastolic 70–94; PULSE 63–98; RESP 17–98; TEMP 36.2–36.8; O2SAT 97–100; BMI 21.2
[2024-11-17] MEDS: HYDROmorphone INJ 2 MG/ML VIAL 1 MG IVP ×3 (00:06→11:41)
--- NOTE | 2024-11-17 00:10 | PC.NURSE ---
Patient pressed call light. Patient had a chief complaint of pain on his abdoment region and patient rated it as a 10/10 pain. Night nurse Miguel Angel assessed patient and checked patient's pain medications. Patient was given dilaudid for his pain of 10/10.
[2024-11-17] MEDS: RINGERS LACTATED 1000 ML 1,000 ML 150 ML IV ×3 (02:25→19:32)
[2024-11-17] MEDS: HYDROcodone/APAP 5/325 TABLET 1 TAB PO ×3 (05:08→19:31)
[2024-11-17 06:06] LABS: Basophils # (Auto) 0.0 Thou/mm3 (0.0-0.2); Basophils % (Auto) 0 % (0-2.5); Eosinophils # (Auto) 0.0 Thou/mm3 (0.0-0.5); Eosinophils % (Auto) 1 % (0-10); Hematocrit 35.1 % (41.0-53.0); Hemoglobin 13.2 g/dL (13.5-16.0); Immature Granulocytes Auto 0.02 Thou/mm3 (0.00-0.00); Lymphocytes # (Auto) 0.5 Thou/mm3 (1.0-4.8); Lymphocytes % (Auto) 9 % (10-50); Mean Corpuscular HGB Conc 37.6 g/dl (31.0-37.0); Mean Corpuscular Hemoglobin 33.1 pg (25.0-35.0); Mean Corpuscular Volume 88 fL (80-100); Monocytes # (Auto) 0.3 Thou/mm3 (0.0-0.8); Monocytes % (Auto) 5 % (0-12); Neutrophils # (Auto) 4.6 Thou/mm3 (1.8-7.7); Neutrophils % (Auto) 84 % (37-80); Nucleated Red Blood Cell # 0.00 Thou/mm3 (0.00-0.00); Nucleated Red Blood Cell % 0 /100 WBC (0); RDW Standard Deviation 40.8 fL (35.1-43.9); Red Blood Count 3.99 Miln/mm3 (4.50-5.90); White Blood Count 5.5 Thou/mm3 (3.8-10.6)
[2024-11-17 06:15] LABS: Platelet Count 6 Thou/mm3 (140-440); Slide Review Platelets confirmed
--- NOTE | 2024-11-17 06:17 | PC.NURSE ---
Patient has critically low platelet of 6. Dr. Leblanc made aware. Dr. Leblanc will order 1 unit platelet STAT.
[2024-11-17 06:58] LABS: Alanine Aminotransferase < 7 U/L (10-49); Albumin, Serum 3.2 gm/dL (3.5-5.0); Albumin/Globulin Ratio 1.2 (1.2-2.2); Alkaline Phosphatase 75 U/L (46-116); Anion Gap 10 (7-16); Aspartate Amino Transferase 20 U/L (0-34); BUN/Creatinine Ratio 9 Ratio (12-20); Bilirubin,Total 1.5 mg/dL (0.3-1.2); Blood Urea Nitrogen 6 mg/dL (9-23); Calcium 8.1 mg/dL (8.3-10.6); Calcium (Corrected) 8.7 mg/dL (8.5-10.1); Carbon Dioxide 24.4 mMol/L (20.0-31.0); Chloride 102 mMol/L (98-107); Creatinine (Component) 0.7 mg/dL (0.6-1.3); Estimated Creatinine Clearance 137.3 mL/min (>60); Globulin 2.6 gm/dL (2.3-3.5); Glucose 89 mg/dL (74-106); Magnesium 1.4 mg/dL (1.6-2.6); Osmolality,Calculated 268 (275-295); Phosphorous 2.1 mg/dL (2.4-5.1); Potassium 4.0 mMol/L (3.4-5.1); Sodium 136 mMol/L (136-145); Total Protein 5.8 gm/dL (5.7-8.2); eGFR > 60 See Note
[2024-11-17] MEDS: ONDANSETRON INJ 2 MG/ML INJ 2 ML 4 MG IVP (07:41)
--- NOTE | 2024-11-17 07:55 | ESPR_ITS ---
<Statement entered by Cooper Martin MD - 11/17/24 18:37> Patient had a drop in platelet overnight most likely due to fluid resuscitation. 2 units of platelet were transfused. Patient requested treatment for HIV which will be managed outpatient in the [facility]. Advanced to bland diet. Will likely follow-up tomorrow and anticipate discharge tomorrow morning. I discussed and supervised with the international marketing intern physician who took care of this patient. I personally saw and examined the patient. I agree with most of the assessment and plan. Disclaimer: Despite multiple revisions, due to the dictation software being used, the document bellow may not be free of grammatical errors including phonetic/typographic errors. However, this does not deter from our commitment to providing health care in the patient's best interest in mind. Plan of care discussed with attending Physician Dr. Justyna Martin MD PGY-3 Documentation for date of: 11/17/24 Subjective Subjective Interval history: No overnight events. Evaluated at bedside. Pt's platelet decreased from 19k to 6k this morning, likely due to untreated HIV. Platelet transfusion ordered. No bleeding from IV site, gum, nor ecchymosis noted on physical exam. Pt reports improvement of abdominal pain from yesterday, but still has a 2/10 RUQ pain with movement. Pt also reports lost of appetitie. Advance to regular diet if tolerable. The patient denies chest pain or shortness of breath. Exam Vital Signs Temp Pulse Resp BP Pulse Ox O2 Del Method O2 Flow Rate 97.4 F 73 18 124/75 99 Room Air 2 11/17/24 04:00 11/17/24 07:30 11/17/24 07:30 11/17/24 04:00 11/17/24 04:00 11/17/24 04:00 11/15/24 18:35 Narrative Exam General: Well appearing, well nourished, in no distress. Oriented x 3, normal mood and affect . Ambulating without difficulty. Skin: Good turgor, no rash, Bruising to right forearm from IV attempt yesteday, no bleeding. No ecchymosis Heart: No cardiomegaly or thrills; regular rate and rhythm, no murmur or gallop Lungs: Clear to auscultation. No wheeze, rales, rhonchi. Abdomen: Bowel sounds normal, slight dull pain to RUQ with palpation, otherwise no organomegaly, masses, or hernia Back: Spine normal without deformity or tenderness, no CVA tenderness Extremities: No amputations or deformities, cyanosis, edema or varicosities, peripheral pulses intact. Objective Labs 11/18/24 04:32 11/18/24 04:32 Labs: Laboratory Results - last 24 hr 11/16/24 11/17/24 05:05 05:37 WBC 5.5 RBC 3.99 L Hgb 13.2 L D Hct 35.1 L MCV 88 MCH 33.1 MCHC 37.6 H RDW Std Deviation 40.8 Plt Count 6 L* D Neut % (Auto) 84 H Lymph % (Auto) 9 L [place] % (Auto) 5 Eos % (Auto) 1 Baso % (Auto) 0 Neut # (Auto) 4.6 Lymph # (Auto) 0.5 L [place] # (Auto) 0.3 Eos # (Auto) 0.0 Baso # (Auto) 0.0 Immature Gran # (Auto) 0.02 H Absolute Nucleated RBC 0.00 Immature Gran % 0 Nucleated RBC % 0 Sodium 136 Potassium 4.0 Chloride 102 Carbon Dioxide 24.4 Anion Gap 10 BUN 6 L Creatinine 0.7 Estim Creat Clear Calc 137.3 eGFR > 60 BUN/Creatinine Ratio 9 L Glucose 89 Calculated Osmolality 268 L Calcium 8.1 L Corrected Calcium 8.7 Phosphorus 2.1 L Magnesium 1.4 L Total Bilirubin 1.5 H AST 20 ALT < 7 L Alkaline Phosphatase 75 Total Protein 5.8 Albumin 3.2 L Globulin 2.6 Albumin/Globulin Ratio 1.2 Free T4 1.08 HIV 1&2 Antibody Rapid See Comment Misc Test Result Platelets confirmed Platelets confirmed Quality Measures Quality Measures VTE prophylaxis (Ambulatory, Neftali score 0 ) Assessment & Plan Assessment Current Active Medications: Generic Name Dose Route Start Last Admin Trade Name Freq PRN Reason Stop Dose Admin Acetaminophen 650 mg 11/15/24 15:45 Acetaminophen 325 Mg Tablet PO 12/15/24 15:44 Q6H PRN Fever >100.4 Acetaminophen 650 mg 11/15/24 15:45 Acetaminophen 325 Mg Tablet PO 12/15/24 15:44 Q6H PRN PAIN SCALE 1-3 (mild Hydrocodone Bitart/Acetaminophen 1 tab 11/15/24 15:45 11/17/24 05:08 Hydrocodone/Apap 5/325 Tablet PO 11/20/24 15:44 1 tab Q4HR PRN Administration PAIN SCALE 4-6 (Moderate Folic Acid 1 mg 11/18/24 09:00 Folic Acid 1 Mg Tablet PO 12/18/24 08:59 QDAY CLAUDIA Folic Acid 1 mg 11/15/24 15:30 11/16/24 10:49 Folic Acid Inj 1 Mg/0.2 Ml IVP 11/17/24 09:01 1 mg QDAY CLAUDIA Administration Hydromorphone HCl 1 mg 11/15/24 15:26 11/17/24 07:42 Hydromorphone Inj 2 Mg/Ml Vial IVP 11/20/24 15:25 1 mg Q4HR PRN Administration Pain 7-10 Lactated Ringer's 1,000 mls @ 150 mls/hr 11/16/24 11:21 11/17/24 02:25 Lactated Ringers IV 12/16/24 11:20 150 mls/hr .Q6H40M CLAUDIA Administration Lorazepam 0.5 mg 11/15/24 15:25 11/16/24 20:22 Lorazepam 2 Mg/Ml Vial IVP 11/20/24 15:24 0.5 mg Q4H PRN Administration CIWA SCORE(2-6) Lorazepam 1 mg 11/15/24 15:25 11/16/24 02:39 Lorazepam 2 Mg/Ml Vial IVP 11/20/24 15:24 1 mg Q4H PRN Administration CIWA SCORE (7-11) Lorazepam 2 mg 11/15/24 15:25 Lorazepam 2 Mg/Ml Vial IVP 11/20/24 15:24 Q4H PRN CIWA SCORE (12-16) Lorazepam 2 mg 11/15/24 15:45 Lorazepam 2 Mg/Ml Vial IV 11/20/24 15:44 Q2HR PRN CIWA SCORE 20-25 Ondansetron HCl 4 mg 11/15/24 15:45 11/17/24 07:41 Ondansetron Inj 2 Mg/Ml Inj 2 Ml IVP 12/15/24 15:44 4 mg Q6H PRN Administration NAUSEA OR VOMITING Protocol Pantoprazole Sodium 40 mg 11/15/24 15:30 11/16/24 10:32 Pantoprazole Inj 40 Mg Vial IVP 12/15/24 15:29 40 mg QDAY CLAUDIA Administration Sennosides 1 tab 11/15/24 15:45 Senna Tablet PO 12/15/24 15:44 QDAY PRN constipation Protocol Thiamine HCl 100 mg 11/15/24 15:30 11/16/24 10:31 Thiamine Inj 100 Mg/Ml Vial 2 Ml IVP 11/17/24 09:01 100 mg QDAY CLAUDIA Administration Thiamine HCl 100 mg 11/18/24 09:00 Thiamine 100 Mg Tablet PO 12/18/24 08:59 QDAY CLAUDIA Plan 29M with history of HIV (not on ARTs), recurrent acute pancreatitis [OCT, FEB 2023, JULY, DEC 2023], and alcohol use disorder who presented on November 15, 2024 with generalized abdominal pain and vomiting. In ED, lipase 1075, CT abdomen: Severe acute pancreatitis with marked edema surrounding the pancreas. He was admitted for management of acute pancreatitis. # Acute Pancreatitis -Likely Alcohol related Pt has hx of reccurent pancreatitis, likely alcohol induced. CT shows severe acute pancreatitis with marked edema and fluid surrounding the pancreas, which may represent a developing pseudocyst. Gallbladder US neg for gallstones. Plan: * Maintain LR at a rate of LR@ 150 mL/hr * Keep pt on clear liquid diet, advance to regular diet if tolerable * Continue pain management with dilaudid * Monitor for pancreatic pseudocyst if sx worsen or no improvement with pain medication. # Chr Thrombocytopenia Plt 6k today, was 19k yesterday. Platelet transfusion ordered. Likely due to HIV. No bleeding from IV sites or ecchymosis noted. Plan: * Platelets transfusion ordered. Trend Platelets count * Consider possibility of TTP, but more likely due to HIV associated thrombocytopenia * Put on bleeding precaution # Alcohol Use Disorder Patient has been drinking alcohol 5-6 beers every day. Last drink 11/14/24. CIWA score of 1 today. Plan: * Start CIWA protocol as needed * Thiamine, folate, multivitamin * PRN lorazepam if symptomatic * Consider addiction medicine consult * Social work referral for outpatient rehab # Subclinical Hyperthyroidism Plan: * Start propranolol if symptomatic for hyperthyroidism, otherwise no intervention needed. 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 Current HR 74 Plan: * Monitor vitals * Repeat EKG if symptoms occur * No active intervention unless symptomatic #HIV 1 (Diagnosed 2021, not on ART) CD4 was 116 in July 2023; current status unknown Plan: * Pending Cocci Serology IgM, consider prophylaxis antibiotics due to low CD4 counts * Pending HIV 1 RNA viral load. * Consider outpatient follow up and initiation of ARTs outpatient. * Reinforce adherence and importance of treatment * Social work for follow-up assistance # Hx of Syphillis Incomplete treatment, 1 dose Penicillin G in Dec 2023. No further follow up Plan: * Pending RPR, syphilis serology positive * ID to assist in completing treatment if needed * Band Ripsaw Operator on STI follow up #Hyperbilirubinemia (chronic) Total bili 1.6 (was 1.4 in December) US Gallbladder negative for gallstgone, normal common bile duct. Plan: * Monitor LFTs and bili trend #Hx of Hypertriglyceridemia Plan: * triglycerides resulted: 120 * Band Ripsaw Operator on low-fat, alcohol-free diet Dispo: MedSurg DVT prophylaxis: Pt ambulatory GI prophylaxis: Protonix 40 Diet: Clear liquid diet Lines: Peripheral IV Code status: Full code Case discussed with my senior resident Dr. Martin Case discussed with my attending Dr. Justyna Olivo DO PGY 1 Attending Provider Attestation/Addendum Cynthia Harris DO, attest that I was physically present for the sotelo portions of the service and evaluated the patient with the resident and I reviewed and discussed the case with the resident and agree with the resident's findings and plans of care as documented above Patient seen and eval this a.m. He continues to have some mild pain in his epigastric region. However, he seems to have tolerated clear liquid diet. Will advance diet as tolerated. Patient states that he had moved from [facility] a couple years ago and lives in [place]. Patient has been unable to see any primary doctor or ID due to lack of transportation. However, patient states that he now has a car and is able to follow-up anywhere he needs to. Patient states that he will be able to follow-up and is willing to do so. I spoke with patient in the afternoon again and counseled him at length and regards to close follow-up and starting treatment for his HIV. Patient has left AGAINST MEDICAL ADVICE on several occasions and there is a concern for compliance. If patient were to start antiretrovirals here and feels to follow- up, there is a high risk of developing resistance to any medications complicating his current diagnosis. Patient states that he has never started any treatment for his HIV. I made a appointment for patient to follow-up with Dr. Berg at the [facility] on November 23 at 3:30 PM where he will start patient on treatment for his HIV. Viral load has been ordered as has CD4/CD8 counts. Partner was also at bedside with patient's permission to speak about his current medical condition as he is well aware. Both were agreeable to follow-up next week. I also counseled patient regarding cessation of alcohol use due to his pancreatitis. Both alcohol use and HIV are the cause of his thrombocytopenia which will put him at risk of spontaneous bleeding as his platelets are less than 6 currently. Patient is currently receiving platelet transfusion. If patient is able to tolerate diet in a.m., anticipate discharge within next 24 hours.
[2024-11-17] MEDS: THIAMINE INJ 100 MG/ML VIAL 2 ML IVP (08:49)
[2024-11-17] MEDS: Magnesium Sulfate 4 GM Ivpb 4 GM/50 ML BAG IV (09:00)
[2024-11-17] MEDS: NAPH,KPH MBDB 1 PACKET (1.5 GM) 2 PACKET PO (09:00)
[2024-11-17] MEDS: FOLIC ACID INJ 1 MG/0.2 ML IVP (09:35)
--- NOTE | 2024-11-17 16:22 | PC.SS ---
SS follow up note; SS contacted the [facility] to schedule patient an appointment with Dr. Giron for November 23 @ 3:30PM. SS will provide appointment information to patient.
[2024-11-17] MEDS: MELATONIN 3 MG TABLET PO (19:31)
[2024-11-18] VITALS: BP 116/77; PULSE 67; RESP 18; TEMP 36.3; O2SAT 99
[2024-11-18] MEDS: RINGERS LACTATED 1000 ML 1,000 ML 150 ML IV (01:44)
[2024-11-18 04:00] VITALS: BP 125/81; PULSE 70; RESP 16; TEMP 36.3; O2SAT 98
[2024-11-18 06:41] LABS: Basophils # (Auto) 0.0 Thou/mm3 (0.0-0.2); Basophils % (Auto) 0 % (0-2.5); Eosinophils # (Auto) 0.1 Thou/mm3 (0.0-0.5); Eosinophils % (Auto) 2 % (0-10); Hematocrit 36.9 % (41.0-53.0); Hemoglobin 13.8 g/dL (13.5-16.0); Immature Granulocytes Auto 0.01 Thou/mm3 (0.00-0.00); Lymphocytes # (Auto) 0.5 Thou/mm3 (1.0-4.8); Lymphocytes % (Auto) 13 % (10-50); Mean Corpuscular HGB Conc 37.4 g/dl (31.0-37.0); Mean Corpuscular Hemoglobin 33.2 pg (25.0-35.0); Mean Corpuscular Volume 89 fL (80-100); Monocytes # (Auto) 0.3 Thou/mm3 (0.0-0.8); Monocytes % (Auto) 7 % (0-12); Neutrophils # (Auto) 3.0 Thou/mm3 (1.8-7.7); Neutrophils % (Auto) 78 % (37-80); Nucleated Red Blood Cell # 0.00 Thou/mm3 (0.00-0.00); Nucleated Red Blood Cell % 0 /100 WBC (0); RDW Standard Deviation 42.2 fL (35.1-43.9); Red Blood Count 4.16 Miln/mm3 (4.50-5.90); White Blood Count 3.8 Thou/mm3 (3.8-10.6)
[2024-11-18 06:48] LABS: Platelet Count 25 Thou/mm3 (140-440)
[2024-11-18 06:50] LABS: Alanine Aminotransferase 12 U/L (10-49); Albumin, Serum 3.6 gm/dL (3.5-5.0); Albumin/Globulin Ratio 1.2 (1.2-2.2); Alkaline Phosphatase 103 U/L (46-116); Anion Gap 10 (7-16); Aspartate Amino Transferase 28 U/L (0-34); BUN/Creatinine Ratio 6 Ratio (12-20); Bilirubin,Total 1.9 mg/dL (0.3-1.2); Blood Urea Nitrogen < 5 mg/dL (9-23); Calcium 8.6 mg/dL (8.3-10.6); Calcium (Corrected) 8.9 mg/dL (8.5-10.1); Carbon Dioxide 26.5 mMol/L (20.0-31.0); Chloride 104 mMol/L (98-107); Creatinine (Component) 0.8 mg/dL (0.6-1.3); Estimated Creatinine Clearance 120.2 mL/min (>60); Globulin 3.0 gm/dL (2.3-3.5); Glucose 60 mg/dL (74-106); Magnesium 1.8 mg/dL (1.6-2.6); Osmolality,Calculated 274 (275-295); Phosphorous 2.1 mg/dL (2.4-5.1); Potassium 4.0 mMol/L (3.4-5.1); Sodium 140 mMol/L (136-145); Total Protein 6.6 gm/dL (5.7-8.2); eGFR > 60 See Note
[2024-11-18 07:39] LABS: Slide Review Platelets confirmed
[2024-11-18 07:47] VITALS: PULSE 72; RESP 18; RESP 98
[2024-11-18 08:00] VITALS: BP 131/74; PULSE 75; RESP 18; TEMP 36.2; O2SAT 99
[2024-11-18] MEDS: FOLIC ACID 1 MG TABLET PO (10:05)
[2024-11-18] MEDS: THIAMINE 100 MG TABLET PO (10:05)
[2024-11-18] MEDS: NAPH,KPH MBDB 1 PACKET (1.5 GM) PO (10:06)
[2024-11-18] MEDS: Magnesium Sulfate 4 GM Ivpb 4 GM/50 ML BAG IV (10:07)
--- NOTE | 2024-11-18 11:12 | PC.NURSE ---
Dishcarge order noted, Per Dr. Koch discharge after Mag sulfate is finished infusing.
[2024-11-18 12:00] VITALS: BP 147/82; PULSE 85; RESP 18; TEMP 36.2; O2SAT 98
[2024-11-18 12:31] LABS: Cocci Serology, IgM Negative (Negative)
--- NOTE | 2024-11-18 13:42 | ESDS_ITS ---
<Statement entered by Cynthia Jansen DO - 11/19/24 08:51> I, Cynthia Jansen DO, attest that I was physically present for the sotelo portions of the service and evaluated the patient with the resident and I reviewed and discussed the case with the resident and agree with the resident's findings and plans of care as documented above <Statement entered by Alec George MD - 11/18/24 16:47> Patient seen and examined at bedside. I discussed and supervised with the internal sales physician who took care of this patient. I personally saw and examined the patient. I agree with most of the assessment and plan. Plan of care discussed with attending Dr. Justyna George MD PGY-2 Planned Discharge Date 11/18/24 DS: Providers Provider Date of admission: 11/15/24 15:23 Primary care physician: Physician No Primary/Family Admitting Provider: Jaqui Ahumada MD Attending Provider on Admission: Jaqui Ahumada MD Attending Provider on DC: Cynthia Jansen DO Discharging Provider: RESIDENT Lee DS: Diagnosis Problem List Completed Was Problem List Reviewed/Reconciled?: Yes Hospital Course Hospital Course Hospital course: The patient is a 29-year-old male with a history of recurrent acute pancreatitis (October, February 2023; December 2023), HIV (diagnosed in 2021, not on ART), thrombocytopenia, and alcohol use disorder, who presented on 11/15/2024 with generalized abdominal pain, nausea, and vomiting. CT abdomen showed severe acute pancreatitis with surrounding edema and peripancreatic fluid concerning for developing pseudocyst. Lipase was elevated to 1075 on admission. The patient was started on IV fluids, dilaudid for pain, and antiemetics. Initially NPO, he was advanced to clear liquids on 11/16 and then bland diet on 11/17, which he tolerated. Platelets were noted to be low on admission (45k), with a further drop to 19k on 11/16 and then 6k on 11/17. He received 2 units of platelets, after which his platelet count increased to 25k. No active bleeding was observed during hospitalization. The thrombocytopenia is likely multifactorial, associated with HIV and possibly alcohol use. HIV viral load and CD4 counts were ordered. The patient had not previously started ART and was counseled extensively on the importance of follow-up. He was agreeable and an appointment was made for 11/23/24 at [facility] so that patient can be started on ART. Patient was counseled at length regarding compliance. Patient will be seeing Dr. Thomas at 3:30 PM that day. Patient verbalized understanding and is agreeable to follow-up. Partner was also at bedside and was agreeable to plan. CIWA protocol was initiated early during hospitalization; the patient remained asymptomatic and required no PRN lorazepam. He was counseled on alcohol cessation and linked to social work for outpatient follow-up and support. No signs of biliary obstruction were seen on ultrasound. Labs also revealed chronic hyperbilirubinemia (T bili ~2.0) with negative RUQ US, and triglycerides were within normal limits. Subclinical hyperthyroidism was noted but did not require acute intervention. The patient?s abdominal pain improved, nausea resolved, and he tolerated oral intake by discharge. He reported feeling strong enough to go home and confirmed his outpatient appointment with ID. He was deemed safe for discharge with follow-up arranged. Diagnoses During Admission: #Acute pancreatitis #Recurrent pancreatitis #Chronic thrombocytopenia #HIV (not on ART) #Alcohol use disorder #Marijuana use disorder #Tobacco/vape use #Hyperbilirubinemia (chronic) #History of syphilis (partially treated) #Sinus bradycardia with short NV interval (resolved) #Subclinical hyperthyroidism #History of hypertriglyceridemia Discharge Plans: Please follow up at [facility], appointment 11/23/2024 at 3:30 in the afternoon -[address], [address] Return to the ED if you develop new or worsening symptoms Patient discharged on famotidine, vitamin B1, and folic acid Follow up with primary care for labs, routine care and for HIV management Avoid alcohol and recreational drugs to prevent recurrence of pancreatitis and worsening thrombocytopenia Resume regular diet as tolerated Maintain adequate hydration and nutrition Keep all follow-up appointments to initiate HIV treatment and prevent complications ----- Plan discussed with attending physician Dr. Jansen and senior resident Dr. Azeem MD PGY-1 Internal Medicine Time Spent with Patient Time attestation: Total time spent providing and/or coordinating discharge services: Time spent: Greater than 30 minutes Quality: Stroke Pt Provided Written Stroke Discharge Instructions: No Exam Vital Signs Temp Pulse Resp BP Pulse Ox O2 Del Method O2 Flow Rate 97.1 F 85 18 147/82 H 98 Room Air 2 11/18/24 12:00 11/18/24 12:00 11/18/24 12:11/18/24 12:11/18/24 12:11/18/24 12:11/15/24 18:35 Narrative Exam General: Alert, well-appearing, in no acute distress. Ambulating without difficulty. Skin: Good turgor, no rash or bleeding. Bruise on right forearm from prior IV attempt. HEENT: Moist mucous membranes. No scleral icterus. Heart: Regular rate and rhythm, no murmurs or gallops. Lungs: Clear to auscultation bilaterally. Abdomen: Soft, non-distended. Mild RUQ tenderness to palpation, no guarding or rebound. Normal bowel sounds. Back: No CVA tenderness. Extremities: No edema, cyanosis, or clubbing. Peripheral pulses intact. Neuro: AOx3, normal mood and affect. Discharge Plan Plan Patient Disposition: HOME (Self Care) Patient condition on transfer: Stable Care Plan Goals: Please follow up at [facility], appointment 11/23/2024 at 3:30 in the afternoon -[address], [address] Return to the ED if you develop new or worsening symptoms Patient discharged on famotidine, vitamin B1, and folic acid Follow up with primary care for labs, routine care and for HIV management Avoid alcohol and recreational drugs to prevent recurrence of pancreatitis and worsening thrombocytopenia Resume regular diet as tolerated Maintain adequate hydration and nutrition Keep all follow-up appointments to initiate HIV treatment and prevent complications Prescriptions/Referrals Prescriptions/Med Rec: New folic acid 1 mg Tablet 1 mg PO QDAY Qty: 90 0RF thiamine mononitrate (vit B1) 100 mg Tablet 100 mg PO QDAY Qty: 90 0RF famotidine 40 mg tablet 40 mg PO QDAY Qty: 90 0RF Referrals: Alec George MD [Resident] - No Primary/Family,Physician [Primary Care Provider] - Patient/Caregiver Discharge Instructions Education Materials: Alcoholism: Getting Help, Addiction Ask These Questions, A ddiction: Your Treatment Options Print Language: Pashto Stand Alone Forms: Lynette Award Info., Patient Portal Info Letter Discharge Order Discharge Orders: Discharge (Routine); Ordered 11/18/24 Ordered By: Kody Jeffries Quality Discharge Quality Measures VTE prophylaxis
[2024-11-19 13:34] LABS: Cocci Serology, IgG Negative (Negative)
[2024-11-21 11:19] LABS: HIV-1 RNA, QN PCR 10400 copies/mL
[2024-11-22 06:48] LABS: HIV-1 RNA, QN PCR Log 4.02
[2024-11-25 09:09] LABS: HIV-1/2 Rapid Confirmation See Cmnt-Confrm=Pos
== END 2024-11-18 14:09 | disposition home or self-care (01) | DRG 282 ==
LOC: SERX 14:07 → SERHOLD 16:01 → S3SX 11-16 06:07
PROVIDERS: Nurse Practitioner Primary Care; Admitting Provider Student in an Organized Health Care Education/Training Program; Emergency Provider Emergency Medicine; Visit Provider Student in an Organized Health Care Education/Training Program
DX: K85.90 Acute pancreatitis without necrosis or infection, unspecified (principal); F17.290 Nicotine dependence, other tobacco product, uncomplicated; Z21 Asymptomatic human immunodeficiency virus [HIV] infection status; D69.6 Thrombocytopenia, unspecified; R00.1 Bradycardia, unspecified; F10.10 Alcohol abuse, uncomplicated; F12.10 Cannabis abuse, uncomplicated; E78.1 Pure hyperglyceridemia; E05.90 Thyrotoxicosis, unspecified without thyrotoxic crisis or storm; K76.9 Liver disease, unspecified; Z59.82 Transportation insecurity; K86.1 Other chronic pancreatitis
CPT/HCPCS: 36415; 74177; 76705; 80053; 80061; 80307; 80320; 81001; 83036; 83690; 83735; 84100; 84439; 84443; 85025; 85610; 85730; 86331; 86635; 86701; 86702; 86703; 86780; 86850; 86900; 86901; 86965; 87536; 93005; 96361; 96374; 96375; 96376; A4649; J1171; J2060; J2270; J2405; J2470; J3411; J3475; J3490; J7030; J7120; P9035; Q9967; A9270; G0480

== ENCOUNTER 2024-11-23 15:32 | Outpatient (AMB) | payer MEDICAID, SELFPAY ==
[2024-11-23 16:33] VITALS: BP 96/67; PULSE 77; RESP 18; TEMP 36.6; O2SAT 98; BMI 21.0
--- NOTE | 2024-11-23 16:33 | PD.RESCLINIC ---
Vital Signs 11/23/24 16:33 Height 1.73 m Height Method Stated Weight 62.823 kg Weight Measurement Method Standing Scale BMI 21.0 BP 96/67 Blood Pressure Source Automatic Cuff Blood Pressure Location Right Upper Arm Position Sitting Respiration 18 Pulse 77 Pulse Source Monitor Temp 97.8 F Temp Source Temporal Artery Scan Pulse Oximetry (%) 98 Oxygen Delivery Method Room Air Allergies/Meds Allergies & Medications Allergies No Known Allergies Allergy (Verified 11/23/24 16:34) Medication Reconciliation famotidine 40 mg tablet 40 mg PO QDAY #90 tabs 11/18/24 [Rx Confirmed 11/23/24] folic acid 1 mg tablet 1 mg PO QDAY #90 tabs 11/18/24 [Rx Confirmed 11/23/24] thiamine mononitrate (vit B1) 100 mg tablet 100 mg PO QDAY #90 tabs 11/18/24 [Rx Confirmed 11/23/24] bictegravir 50 mg-emtricitabine 200 mg-tenofovir alafenam 25 mg tablet (Biktarvy) 1 tab PO QDAY 1 month #30 tabs 11/23/24 [Rx] sulfamethoxazole 800 mg-trimethoprim 160 mg tablet (Bactrim DS) 1 tab PO QDAY 1 month #30 tabs 11/23/24 [Rx] MA Intake Visit Data Collection New Patient or Established: Established Patient (seen at [facility] within 3 years) Seen by Clinical Staff ONLY (RN/MA): No Pain Present Currently: No Pain scale:: 0 Pain Scale Used: Hahn-Manuel/[employer] Required: No PCP or OBGYN visit in last 3 months: No Hx Now: No Do You Feel Safe at Home: Yes Authorities Contacted: N/A Smoking Status Smoking Status: Former smoker Immunization / Flu Flu Vaccine in the Last 12 Months: No Flu Vaccine Exclusion Criteria: No Exclusion Criteria Past Medical History Past Medical History NEUROLOGIC: Negative Neurological Disorders CARDIAC: Negative Cardiac Disorders, Congestive Heart Failure or Hypertension RESPIRATORY: Negative Chronic Obstructive Pulmonary Disease (COPD) or Asthma GASTROINTESTINAL: Positive Gastrointestinal Disorders and Pancreatitis GENITOURINARY: Negative Genitourinary Disorders or Renal Disease ENDOCRINE: Negative Endocrine Disorders, Diabetes Mellitus Type 1, Diabetes Mellitus Type 2, Hyperthyroidism or Hypothyroidism HEMATOLOGIC: Negative Blood Disorders or Sickle Cell Disease OTHER HISTORY: Positive Human Immunodeficiency Virus (HIV); Negative Autoimmune Disease or Anesthesia Reactions Family History FAMILY HISTORY: Negative Family Cardiac Disorders Surgical History SURGICAL: Negative Endocrine Surgery, Ear Surgery or Nephrectomy Social History SMOKING STATUS: Smoking status: Former smoker ALCOHOL: Alcohol Intake: Current ALCOHOL FREQUENCY: Alcohol Intake Frequency: A Few Times a Week HOUSING: Housing: House LIVES WITH: Lives With: Significant Other Patient Portal Cynthia Social History Living Situation History Housing: House Housing Other:: pt lives with Tobacco History Smoking Status: Former smoker Alcohol History Alcohol Intake: Current Alcohol Intake Frequency: A Few Times a Week Alcohol Intake Frequency Other:: 2-3 beers Domestic Abuse History Do You Feel Safe at Home: Yes Review of Systems Report any current symptoms Only answer those that you have currently: Past Medical History Past Medical History Have you ever been diagnosed with any of the following: Cardiology Problems Congestive Heart Failure: No Hypertension: No Respiratory Problems Chronic Obstructive Pulmonary Disease (COPD): No Asthma: No Stomache/Intestinal Problems Pancreatitis: Yes Genital/Urinary Problems Renal Disease: No Endocrine Problems Diabetes Mellitus Type 1: No Diabetes Mellitus Type 2: No Hyperthyroidism: No Hypothyroidism: No Blood Problems Sickle Cell Disease: No Other Problems Autoimmune Disease: No Anesthesia Reactions: No Human Immunodeficiency Virus (HIV): Yes History of Present Illness HPI Narrative 11/23/2024: 29 y/o M with PMHx untreated HIV, syphilis s/p treatment, recurrent pancreatitis due to alcohol use presents for hospital follow up after treatment for pancreatits. Patient doing well, denies nausea, vomiting, pain with eating. Patient expressed desire to initiate HIV treatment. DIscussed risks and benefits of medication with patient. CD4 count pending, was 114 in 2023. Started on prophylactic bactrim. Ordered tests including Chlamydia, gonorrhea, hepatitis panel. Started Biktarvy, placed referral to ID. Advised patient to speak with their partner to get tested. Review of Systems Review of Systems Systems Reviewed: All systems reviewed, normal except as documented Objective/Exam Narrative Physical exam: PE: Gen: Well-developed and well-nourished. HEENT: NCAT, PERRLA, EOMI, MMM, anicteric conjunctivae. CVS: normal S1 and S2. RRR. No M/R/G. Resp: CTA B/L. No rhonchi, rales, crackles or wheezing. Abd: soft, non-tender, non-distended. MSK: Good ROM in BUE & BLE. No edema or rash. Neuro: CN II-XII grossly intact. Strength 5/5 in BUE & BLE. Alert and oriented x3. Psych: appropriate mood and affect. Assessment & Plan Diagnosis / Problem List (1) HIV (human immunodeficiency virus infection): Status: Acute Qualifiers: HIV symptom status: asymptomatic, with no history of HIV-related illness Qualified Code(s): Z21 - Asymptomatic human immunodeficiency virus [HIV] infection status Assessment & Plan: Patient has known history of HIV, untreated. CD4 114 in 2023. Recent HIV RNA viral load 77263. Plan -Infectious disease consult -Bactrim DS once daily -Biktarvy 50-200-50 once daily -Hepatitis panel, chlamydia, gonorrhea pending Orders: Referrals Infectious Disease Z21 - Asymptomatic human immunodeficiency virus [HIV] infection status Additional Plan Plan of care discussed with attending Dr. Nunez. Alec George MD PGY-2 Office Procedures [facility] Level of Care Nursing/Assessment Patient Status: Established Patient Nursing Assessment/Reassessment: Medication Reconciliation, Update PMH in EMR and Vital Signs Coordination of Care: Complex Care and Chronic Disease 1-5, Consent,records obtained, informed consent, Education Simp Pt/Fam and Staff clarify orders Established Patient Charge Established Patient Point Assignment: 85 Established Patient Point Charge: EP Level 3 (80-115)
== END 2024-11-23 17:11 | disposition home or self-care (01) ==
LOC: HODAHC 15:32
PROVIDERS: Supervising Provider Internal Medicine
DX: Z21 Asymptomatic human immunodeficiency virus [HIV] infection status (principal)
CPT/HCPCS: 99213; G0463